=== PATIENT | male | born 1955 | race African-American/Black ===

== ENCOUNTER 2016-06-19 19:14 | Emergency (ER) | payer OTHER ==
[~2016-06-19 19:14] MED LIST: ASPIRIN81 M1 PO; AUGMENTIN 875-1 EAC2 PO; HYDROCHLOROTHIA25 M1 PO; ISOSORBIDE MONO30 M4 PO; LISINOPRIL10 M1 PO; MULTIVITAMINS1 EAC6 PO; NO HOME MEDS; NORVASC10 M2 PO; NORVASC5 M2 PO; PLAVIX75 M1 PO; PREDNISONE10 M1 PO; ZOCOR40 M1 PO
[2016-06-19] MEDS ORDERED: IMITREX50 M2 PO (22:14)
[2016-06-19] MEDS ORDERED: DELTASONE20 MG PO (22:14)
== END 2016-06-19 22:50 ==
LOC: EDMED 19:14
DX: J32.9 Chronic sinusitis, unspecified (principal); G44.009 Cluster headache syndrome, unspecified, not intractable; I10 Essential (primary) hypertension; Z98.890 Other specified postprocedural states; F17.200 Nicotine dependence, unspecified, uncomplicated; Z79.82 Long term (current) use of aspirin; Z79.899 Other long term (current) drug therapy
CPT/HCPCS: J1885; J3030

== ENCOUNTER 2016-11-05 16:21 | Emergency (ER) | payer OTHER ==
[~2016-11-05] VITALS: Ht 177.8 cm; Wt 70.8 kg
[~2016-11-05 16:21] MED LIST changes: +DELTASONE20 MG PO; +IMITREX50 M2 PO
== END 2016-11-05 18:52 ==
LOC: EDMED 16:21
PROC: 2W39X1Z Immobilization of Left Upper Extremity using Splint (ICD-10-PCS; principal; 2016-11-05)
DX: S93.622A Sprain of tarsometatarsal ligament of left foot, initial encounter (principal); I25.2 Old myocardial infarction; I10 Essential (primary) hypertension; Z79.82 Long term (current) use of aspirin; Z88.8 Allergy status to other drugs, medicaments and biological substances; Z79.899 Other long term (current) drug therapy; F17.200 Nicotine dependence, unspecified, uncomplicated; X50.1XXA Overexertion from prolonged static or awkward postures, initial encounter; Y92.017 Garden or yard in single-family (private) house as the place of occurrence of the external cause